=== PATIENT | male | born 1990 | race African-American/Black ===

== ENCOUNTER 2016-09-20 19:36 | Emergency (ER) | payer BC ==
[~2016-09-20] VITALS: Ht 190.5 cm; Wt 87.0 kg
[2016-09-20 19:40] VITALS: TEMP 36.5; Ht 190.5 cm; Wt 87.0 kg
[2016-09-20] MEDS ORDERED: IBUPROFEN 600 MG TAB PO STA (19:54)
[2016-09-20] MEDS ORDERED: OXYCODONE HCL IR 5 MG TAB (IMMEDIATE RELEASE) PO STA (19:54)
[2016-09-20] MEDS ORDERED: IBUP-1050 PO (19:59)
[2016-09-20] MEDS ORDERED: OXYC1TAB3 PO (20:43)
--- NOTE | 2016-09-20 20:46 | EMERGENCY ROOM VISIT NOTE ---
ED Visit Note First contact with patient: 19:42 CHIEF COMPLAINT: "I think I tore my Achilles tendon." HISTORY OF PRESENT ILLNESS: Patient is a 26-year-old -[place] male who presents emergency department for evaluation of right heel pain. He states that just prior to arrival he was playing basketball. He planted on the right leg and attempted to twist and pushed off, when he felt a pop in the posterior aspect of his ankle. He stopped playing. He was able to bear weight but it is painful, in the posterior aspect of his leg. He rates his discomfort a 7/10. No knee pain. He denies any numbness, tingling or weakness. REVIEW OF SYSTEMS: Review of systems as per HPI. All other systems reviewed were negative. At least 6 systems reviewed. PMH: Electronic medical records are reviewed and summarized as above/below. See Problem List. SOCIAL HISTORY: Patient is a college student who lives with girlfriend. Nonsmoker. PHYSICAL EXAM: Vital Signs: Reviewed Nurse's notes. MENTAL STATUS: Alert, oriented, and cooperative. MUSCULOSKELETAL: Examination of the right lower extremity did not show any obvious ecchymosis, joint effusion, soft tissue swelling or deformity. He does not have any pain over the metatarsals, the medial or the lateral malleolus. No pain over the proximal fibular head. The calf is soft and nontender. Patient has localized pain to palpation and an obvious defect palpable in the Achilles tendon. He is able to plantarflex and dorsiflex slightly, but has pain, and diminished strength. The foot and toes are warm and well-perfused. Sensation to pain and light touch is intact. EMERGENCY DEPARTMENT COURSE: X-ray of the right calcaneus does not reveal any bony avulsion. The patient was medicated with ibuprofen and oxycodone. An Mohsen wrap and a walking boot were applied to the right foot and ankle under my direction and the position was satisfactory. Crutches were issued and patient was instructed on a non weight bearing gait. I discussed with him my suspicion for an Achilles tendon rupture. Conservative care measures were discussed. He was given contact information for [facility] orth[facility] for follow-up. He will call in the morning for an appointment. Differential diagnosis include Achilles tendon rupture, Achilles tendon sprain, calf strain, foot verses ankle sprain/fracture, contusion, dislocation. RIGHT HEEL MIN 2 VIEWS CLINICAL HISTORY: RIGHT, Achilles tendon rupture Right. Right heel pain. COMPARISON STUDY: None. FINDINGS: There appears to be thickening within the proximal to mid Achilles tendon. The tendon appears to be intact by conventional radiographic technique. No fracture or dislocation within the calcaneus. IMPRESSION: Thickened but intact Achilles tendon by conventional radiographic technique. Follow-up nonemergent MRI is recommended for further characterization. Current/Historical Medications Scheduled PRN Ibuprofen (Advil), 600 MG PO DAILY PRN for Headache or Pain Oxycodone Immediate Rel Tab (Roxicodone Ir), 1-2 TAB PO Q4H PRN for Severe Pain Allergies Coded Allergies: No Known Allergies (Unverified , 06/03/13) Vital Signs Date Time Temp Pulse Resp B/P Pulse Ox O2 Delivery O2 Flow Rate FiO2 09/20/16 21:40 83 18 155/79 96 Room Air 09/20/16 19:40 36.5 100 18 121/82 98 Room Air Medications Administered Medications (Trade) Dose Ordered Sig/Simi Route Start Time Stop Time Status Last Admin Dose Admin Ibuprofen (Motrin Tab) 600 mg NOW STAT PO 09/20/16 19:54 09/20/16 19:57 DC 09/20/16 20:11 600 MG Oxycodone HCl (Roxicodone Immediate Rel Tab) 5 mg NOW STAT PO 09/20/16 19:54 09/20/16 19:57 DC 09/20/16 20:11 5 MG Departure Information Impression Primary Impression: Achilles rupture, right Prescriptions Oxycodone Immediate Rel Tab (ROXICODONE IR) 5 Mg Tab 1-2 TAB PO Q4H Y for Severe Pain, #24 TAB For Initial Treatment Prov: Gogo Potter PA 09/20/16 Referrals No Doctor, Assigned (PCP) Bam Rodriguez M.D. Patient Instructions A Signature Page, [facility] [place] [employer] Additional Instructions DO NOT drive, drink alcohol, operate machinery, or perform dangerous activities today. You were given medications in the ER that can affect your ability to safely function or operate a vehicle. Oxycodone (OxyIR) 5mg: Take 1-2 pills every four hours for breakthrough pain. Avoid alcohol, operating machinery or dangerous equipment, working on ladders or roofs, DRIVING, or situations where being under the influence may be dangerous. It is recommended to use an [id number]-[id number]-rpsaitk stool softener such as Colace, 100mg twice daily while taking this medication to avoid constipation. Ibuprofen(Motrin, Advil) may be used for fever or pain. Use 600mg every six hours as needed. Take with food. Avoid using more than 2400mg in a 24 hour period. Do not use 2400mg per day for more than three consecutive days without physician direction. Prolonged inappropriate use can lead to stomach upset or ulcers. This medication can be taken if you need to drive, work, or perform activities which may be dangerous when taking narcotic pain medication. (AND/OR) Acetaminophen(Tylenol) may be used for fever or pain. Use 1000mg every six hours as needed. Avoid using more than 3000mg in a 24 hour period. This medication can be taken if you need to drive, work, or perform activities which may be dangerous when taking narcotic pain medication. Ice compresses for 20 minutes at a time four times daily for 2-3 days. Use the walking boot and crutches as instructed. Rest and elevate your injury. Continue current medications. Return to the ER immediately for any numbness, tingling, severe pain, extreme swelling in the extremity or as needed. Call [facility] tomorrow morning to arrange follow up for your injury. Tell them you were seen in the emergency department and had a suspected Achilles tendon rupture. They will make a follow-up appointment for you.
--- NOTE | 2016-09-20 21:01 | DIAGNOSTIC IMAGING REPORT ---
RIGHT HEEL MIN 2 VIEWS CLINICAL HISTORY: RIGHT, Achilles tendon rupture Right. Right heel pain. COMPARISON STUDY: None. FINDINGS: There appears to be thickening within the proximal to mid Achilles tendon. The tendon appears to be intact by conventional radiographic technique. No fracture or dislocation within the calcaneus. IMPRESSION: Thickened but intact Achilles tendon by conventional radiographic technique. Follow-up nonemergent MRI is recommended for further characterization. Electronically signed by: Erik Tee M.D. 09/20/2016 8:59 PM Dictated Date/Time: 09/20/2016 8:57 PM
[2016-09-20 21:40] VITALS: BP 155/79; PULSE 83; O2SAT 96
== END 2016-09-20 21:41 | disposition home or self-care (01) ==
LOC: C.EDB 19:37 → C.EDD 21:41
DX: S96.211A Strain of intrinsic muscle and tendon at ankle and foot level, right foot, initial encounter (principal); X58.XXXA Exposure to other specified factors, initial encounter

== ENCOUNTER → 2016-09-24 | Outpatient (CLI) | payer BC ==
[~2016-09-24] MED LIST: IBUP-1050 PO; OXYC1TAB3 PO
[2016-09-24 17:38] LABS: HEMATOCRIT 42.8 % (42-52); MEAN CELL VOLUME 81.1 fL (80-100); MEAN CORPUSCULAR HGB CONC 35.7 g/dl (32-36); MEAN PLATELET VOLUME 10.4 fL (7.4-10.4); PLATELET COUNT 231 K/uL (130-400); RED BLOOD COUNT 5.28 M/uL (4.7-6.1); WHITE BLOOD COUNT 3.81 K/uL (4.8-10.8)
[2016-09-24 17:51] LABS: PROTHROMBIN TIME (PATIENT) 11.1 SECONDS (9.0-12.0)
== END | disposition home or self-care (01) ==
LOC: C.LAB1850 16:24
PROVIDERS: ATTEND Physical Medicine & Rehabilitation Sports Medicine
DX: Z01.818 Encounter for other preprocedural examination (principal); S86.019A Strain of unspecified Achilles tendon, initial encounter; X58.XXXA Exposure to other specified factors, initial encounter